=== PATIENT | female | born 1975 | race Caucasian/White ===

== ENCOUNTER → 2017-01-02 | Outpatient (CLI) | payer SELFPAY | END | disposition home or self-care (01) | LOC: PTH.S 01-01 08:30 | DX: R63.5 Abnormal weight gain (principal); R35.0 Frequency of micturition; R63.1 Polydipsia; Z00.00 Encounter for general adult medical examination without abnormal findings ==

== ENCOUNTER 2017-02-08 11:45 | Emergency (ER) | payer SELFPAY ==
--- NOTE | 2017-02-10 13:52 | ER ---
ADMIT: 02/08/2017 RM/LOC: ER [facility] MR#: [id number] [id number] PHIL GURROLA [address] [place] [address] Emergency Room Report SEX: F AGE: 41 : 1975 DATE: 02/08/2017 CHIEF COMPLAINT: Injury to right leg. HISTORY OF PRESENT ILLNESS: A 41-year-old female, who presents via EMS complaining of severe pain in her right leg. She states she was at [facility] when a forklift dropped a stack of metal and bentley on her right leg. Currently, she rates the pain as 10/10. This happened just right prior to arrival. She has significant swelling of the right lower extremity, pain with movement. She is unable to bear weight. She is transferred to the cot primarily by her . Denies any numbness or tingling. There has not been snapping or popping sensation. PAST MEDICAL HISTORY: Significant for depression, nestor, and three C- sections. ALLERGIES: NO KNOWN MEDICAL ALLERGIES. SOCIAL HISTORY: She is a pack-a-day smoker. PHYSICAL EXAMINATION: She has significant tenderness to palpation about the entire right lower extremity. Complaining of pain everywhere I touch. Neurovascularly, she is intact. She has good dorsalis pedis and posterior tib pulses compared bilaterally. She has light touch sensation equal compared bilaterally. Primarily complains of pain, did get an IV started for morphine, for Zofran, pain improved. X-rays were obtained of the right lower leg and right femur. No fractures or dislocations found on exam. She does have some soft tissue swelling of the right upper leg. She complains of some epigastric pain when I re-examined her, is concerned this could be related to the fact that she has not ate today. I did give her a bag of chips and a diet Mountain Dew. She states she is feeling better and ready for discharge. ADMIT: 02/08/2017 RM/LOC: [facility] MR#: [id number] [id number] PHIL GURROLA [address] [place] [address] Emergency Room Report SEX: F AGE: 41 : 1975 IMPRESSION: 1. Right upper and lower leg foot contusion. 2. Right foot abrasion. DISPOSITION: The patient was discharged home. Script for [facility] 5/325, one to two tabs every 4 to 6 hours as needed for pain #20. Activity as tolerated. Continue home medications, Tylenol and motion as needed for pain. Cautioned using narcotic pain medication, certainly cannot drive, did warn her that this could upset her stomach taking with food. Rest, ice, compress, and elevate. Follow up with her primary care provider if she is not improving. Questions sought and answered to the best of my ability and the patient's satisfaction. Discharged home in stable condition. SUSIE Rai / Major Machuca MD / suleman JOB #: [id number] CC: Major Machuca MD, Attending Physician Corinne Guerrier, Family Physician
== END 2017-02-08 13:54 | disposition home or self-care (01) ==
LOC: ER 11:45
DX: S90.31XA Contusion of right foot, initial encounter (principal); F32.9 Major depressive disorder, single episode, unspecified; F17.210 Nicotine dependence, cigarettes, uncomplicated; W20.8XXA Other cause of strike by thrown, projected or falling object, initial encounter; Y92.830 Public park as the place of occurrence of the external cause